=== PATIENT | female | born 1935 ===

== ENCOUNTER 2024-06-30 05:08 | Day surgery (SDC) | payer OTHER ==
[2024-06-24 10:04] VITALS: BP 139/78
[2024-06-24 10:09] LABS: HEMATOCRIT 42.1 % (36.0-45.00); HEMOGLOBIN 13.9 g/dL (12.0-15.00); MEAN CELL VOLUME 92.7 fL (80.00-100.00); MEAN CORPUSCULAR HEMOGLOBIN 30.6 pg (27.00-32.0); PLATELET COUNT 301 K/uL (150-450); RED BLOOD COUNT 4.54 M/uL (4.00-6.00); RED CELL DISTRIBUTION WIDTH 13.7 % (11.5-14.5)
[2024-06-24 10:32] LABS: INR 1.05; PARTIAL THROMBOPLASTIN TIME 27.6 SECONDS (22.0-34.0); PROTHROMBIN TIME 11.4 SECONDS (9.0-11.5)
[2024-06-24 10:40] LABS: ALBUMIN 4.1 gm/dL (3.4-5.0); BILIRUBIN TOTAL 0.77 mg/dL (0.3-1.2); CALCIUM 9.9 mg/dL (8.5-10.1); CREATININE SERUM 0.7 mg/dL (0.55-1.02); GFR 79.15; GLOBULINA 3.4 G/DL (2.4-3.5); POTASSIUM 3.91 mEq/L (3.5-5.1); TOTAL PROTEIN 7.5 gm/dL (6.4-8.2)
[2024-06-24 11:29] LABS: URINE APPEARANCE Clear; URINE BILIRRUBIN Negative (NEGATIVE); URINE BLOOD Negative; URINE COLOR Yellow; URINE GLUCOSE Negative (NEGATIVE); URINE KETONE Negative (NEGATIVE); URINE LEUKOCYTE Trace; URINE NITRATE Negative; URINE PROTEIN Negative (NEGATIVE); URINE UROBILINOGEN 0.2 E.U./dl
[2024-06-24 11:33] LABS: URINE BACTERIA 18.3 uL (0.0-1933); URINE EPITHELIAL CELLS 8.5 uL (0.0-38.8); URINE WBC 10.8 uL (0.0-23.2)
[2024-06-24 12:01] LABS: URINE CAST 0.29 uL (0.0-1.40)
[~2024-06-30] VITALS: Ht 152.4 cm; Wt 67.1 kg
[~2024-06-30 05:08] MED LIST: ALLERGY RELIEF10 M3 PO; BACLOFEN5 MG PO; DORZOLAMIDE 2%10 ML OP; DORZOLAMIDE-TIM10 ML OPHT; HORIZANT300 MG PO; IRBESARTAN-HCT1 EACH PO; LIPITOR20 MG PO; LUMIGAN2.5 M1 OP; METFORMIN HCL500 M3 PO; MONTELUKAST SOD10 MG PO; SYNTHROID100 MCG PO
[2024-06-30] MEDS ORDERED: CEFAZOLIN SODIUM 1,000 MG VIAL ONE ×2 (07:00→07:20)
[2024-06-30] MEDS ORDERED: SUGAMMADEX SODIUM 200 MG/2 ML VIAL IV ONE (08:02)
[2024-06-30] MEDS ORDERED: MORPHINE SULFATE 4 MG/ML VIAL IV ONE ×2 (08:45→09:15)
== END 2024-06-30 11:30 | disposition home or self-care (01) ==
LOC: CIR.AMB 05:08
PROVIDERS: ATTEND Surgery
DX: K42.0 Umbilical hernia with obstruction, without gangrene (principal); Z91.013 Allergy to seafood; Z88.8 Allergy status to other drugs, medicaments and biological substances
CPT/HCPCS: 49594; C1781